=== PATIENT | female | born 1980 | race Caucasian/White ===

== ENCOUNTER 2018-07-17 23:02 | Inpatient (IN) ==
[2018-07-18] MEDS ORDERED: Acetaminophen 325 MG Tablet PO PRN (00:23)
[2018-07-18] MEDS ORDERED: Naloxone Inj 0.4 MG/ML Vial IV.PUSH PRN (00:23)
[2018-07-18] MEDS ORDERED: Benzocaine 20% Top Spray 60 ML Can TOPICAL PRN (00:23)
[2018-07-18] MEDS ORDERED: Zolpidem Tartrate 5 MG Tablet PO PRN (00:23)
[2018-07-18] MEDS ORDERED: Witch Hazel 50%/Glyderin 12.5% 40 Pad Jar RECTAL PRN (00:23)
[2018-07-18] MEDS ORDERED: Bisacodyl 10 MG Supp RECTAL PRN (00:23)
[2018-07-18] MEDS ORDERED: Oxytocin 30 Units/500ml Premix 30 UNITS/500 ML BAG IV.CONT PRN (00:23)
--- NOTE | 2018-07-18 00:40 | P.OP ---
- Preoperative Diagnosis (1) Fourth degree laceration of perineum during delivery, - Postoperative Diagnosis (1) Fourth degree laceration of perineum during delivery, Date of procedure: 07/17/18 Procedure: Repair Fourth degree perineal laceration Anesthesia: local (15 Lidocaine) Surgeon: Yovany Hinojosa MD Account Advisor: Leilani Concepcion Estimated blood loss (mL): 50 Operation and Findings: [facility] [place]. Patient had spontaneous vaginal delivery with Dr Stephany Sahni. DR Sahni reported 'rectal tear'. Vagina and perineum was cleansed with betadine. Examination was done that showed rectal extension. Prior sutures were removed. We determined 4th degree laceration. Rectal extension was repaired using 3.0 Vicryl mucosa. The retracted sphincter muscles were identified with Allis clamps, and re- approximated with 1 Prolene The rest of the repair was completed in standard fashion using 2.0 Vicryl/0 Vicryl. Rectal exam showed no palpable sutures ans was intact. Hemostasis ensured.
[2018-07-18] MEDS: Amoxicillin/Clavulanate 875/125 MG Tablet PO SCH ×2 (01:01→11:35)
--- NOTE | 2018-07-18 01:15 | P.HPOB ---
Patient is a 37 yo now P1, admitted here from [facility]. Patient was 39 weeks and 6 days, arrived there in spontaneous labor, and proceeded to deliver vaginally. Patient was delivered by Stephany Sahni. Patient states was previously uncompliacted. Stephany Sahni then repaired what she believed was a 2nd degree perineal laceration. However post repair, she noted that she could pass her finger from opening in vagina, through to a rectal tear. She was hemodynamicaly stable, and brought here for evaluation and repair. PMH denies PSH: denies NKDA. Non- smoker, no alcohol use, no h/o drug use. PHYSICAL EXAM. No palor, jaundice, or thyromegaly. No peripheral palpable lymphadenopathy. Afebrile, vital signs stable. Chest: CTS. RSR Abdomen: Fundus firm, 2Fb below umbilicus. Perineum with sutures. We were able to pass finger from vaginal opening to rectal tear. Sutures unravelled and 4th degree perineal laceration confirmed. A/Plan: Fourth degree perineal laceration. s/p Term spontaneous vaginal delivery at [facility]. proceed to repair ( repair separately dictated).
[2018-07-18 01:19] LABS: Hematocrit 35.5 % (35.0-46.0); Hemoglobin 12.1 gm/dL (11.6-15.3); Mean Corpuscular HGB Conc 34.1 % (32.0-36.0); Mean Corpuscular Hemoglobin 33.2 pg (27.0-34.0); Mean Corpuscular Volume 97.3 fL (80.0-100.0); Mean Platelet Volume 12.8 fL (7.0-11.0); Platelet Count 88 th/mm3 (150-450); Red Blood Count 3.65 mil/mm3 (4.00-5.30); Red Cell Distribution Width 14.3 % (11.6-17.2); White Blood Count 12.5 th/mm3 (4.0-11.0)
[2018-07-18 08:13] VITALS: BP 100/61; PULSE 83; RESP 14; TEMP 98.1
--- NOTE | 2018-07-18 08:57 | P.PNOB ---
Subjective Post day: 1 Interval history: Patient is a 37-year-old delivered at 39 weeks and 6 days. Patient is day 1 after NVD; patient delivered at birthing center but required hospital care for treatment of a fourth degree tear. Patient's pain is well- controlled. Patient reports minimal bleeding. Patient reports eating and drinking without any nausea or vomiting. Patient has passed gas but has not had a bowel movement. Patient denies chest pain and shortness of breath. Patient has been ambulating; she denies lower extremity pain. Patient reports desire for contraception, which she will discuss with her PCP at her first follow-up visit. Patient has decided to breast-feed. Objective Vital Signs/I&O: Vital Signs 07/17/18 23:10 07/17/18 23:11 07/17/18 23:15 Temperature 98.1 F Pulse Rate 100 H 99 H Respiratory Rate 18 Blood Pressure 106/62 07/17/18 23:20 07/17/18 23:25 07/17/18 23:30 Temperature Pulse Rate 108 H 106 H 93 H Respiratory Rate Blood Pressure 07/17/18 23:35 07/17/18 23:40 07/17/18 23:45 Temperature Pulse Rate 85 92 H 87 Respiratory Rate Blood Pressure 07/17/18 23:50 07/17/18 23:55 07/18/18 00:00 Temperature Pulse Rate 93 H 95 H 92 H Respiratory Rate Blood Pressure 07/18/18 00:05 07/18/18 00:10 07/18/18 00:15 Temperature Pulse Rate 85 86 90 Respiratory Rate Blood Pressure 07/18/18 00:25 07/18/18 00:30 07/18/18 02:15 Temperature 98.0 F Pulse Rate 77 94 H 86 Respiratory Rate 18 Blood Pressure 101/59 L 07/18/18 08:00 Temperature 98.1 F Pulse Rate 83 Respiratory Rate 14 Blood Pressure 100/61 Intake & Output 07/17/18 07/18/18 07/18/18 18:59 06:59 18:59 Weight 75.75 kg Result Diagrams: 07/17/18 23:18 Objective Remarks: GENERAL: Well-nourished, well-developed patient. CARDIOVASCULAR: Regular rate and rhythm without murmurs, gallops, or rubs. RESPIRATORY: Breath sounds equal bilaterally. No accessory muscle use. ABDOMEN/GI: Abdomen soft, non-tender. Fundus: Firm, non-tender at umbilicus. GENITOURINARY: Light to moderate bleeding. EXTREMITIES: No cyanosis or edema, non-tender, without signs of DVT. Medications and IVs: Active Medications Acetaminophen (Tylenol) 650 mg PO Q4H PRN PRN Reason: PAIN SCALE 1 TO 2 Al Hydroxide/Mg Hydroxide (Milk Of Magnesia Liq) 30 ml PO Q12H PRN PRN Reason: Mild Constipation Amoxicillin/Clavulanate Potassium (Augmentin 875/125 Mg) 1 tab PO Q12HR [facility] Last Admin: 07/18/18 01:01 Dose: 1 tab Benzocaine (Americaine 20% Top [place]) 1 spray TOPICAL Q4H PRN PRN Reason: For Perineum Discomfort Last Admin: 07/18/18 01:02 Dose: 1 spray Bisacodyl (Dulcolax Supp) 10 mg RECTAL DAILY PRN PRN Reason: SEVERE CONSITIPATION Diphtheria/Pertussis/Tetanus Vacc (Boostrix Vaccine Inj) 0.5 ml IM .ONCE ONE Stop: 07/18/18 16:01 Oxytocin (Pitocin 30 Units/Ns 500 Ml Premix) 30 units in 500 mls @ 100 mls/hr IV.CONT UNSCH PRN PRN Reason: Heavy bleeding Ibuprofen (Motrin) 800 mg PO Q8H PRN PRN Reason: For Cramping Lactulose (Lactulose Liq) 30 ml PO DAILY PRN PRN Reason: SEVERE CONSITIPATION Measles/Mumps/Rubella Vaccine Live (M-M-R Ii Vaccine Inj) 0.5 ml SQ .ONCE ONE Stop: 07/18/18 16:01 Naloxone HCl (Narcan Inj) 0.1 mg IV.PUSH Q2M PRN PRN Reason: for opiate reversal Ondansetron HCl (Zofran Odt) 4 mg PO Q6H PRN PRN Reason: NAUSEA OR VOMITING Oxycodone/Acetaminophen (Percocet 5/325 Mg) 1 tab PO Q4H PRN PRN Reason: PAIN SCALE 3 TO 5 Senna/Docusate Sodium (Darya-Colace) 1 tab PO BID [facility] Sennosides (Senokot) 17.2 mg PO Q12H PRN PRN Reason: Moderate Constipation Sodium Chloride (Ns Flush) 2 ml IV.FLUSH BID BERENICE Sodium Chloride (Ns Flush) 2 ml IV.FLUSH PRN PRN PRN Reason: FLUSH AFTER USING IV ACCESS Witch Rhea/Glycerin (Tucks Pads) 1 applicatio RECTAL QID PRN PRN Reason: HEMORRHOIDS Last Admin: 07/18/18 01:01 Dose: 1 applicatio Zolpidem Tartrate (Ambien) 5 mg PO HS PRN PRN Reason: SLEEP Assessment and Plan - Diagnosis (1) 39 weeks gestation of Code(s): Z3A.39 - 39 weeks gestation of Status: Acute (2) Fourth degree laceration of perineum during delivery, Code(s): O70.3 - Fourth degree perineal laceration during delivery Status: Acute - Plan Patient is a 37-year-old delivered at 39 weeks and 6 days. Patient is day 1 after NVD; patient delivered at birthing center but required hospital care for treatment of a fourth degree tear. Continue routine care. Motrin and Percocet when necessary for pain. Encourage OOB. Follow-up with OB provider in 1-2 weeks for monitoring of fourth degree tear. Discussed soft diet to avoid hard stool. Patient discharged on stool softener and Augmentin x5 days. Pelvic rest for 6 weeks will need follow-up appointment at that time. Contraception: Patient to discuss with OB provider. Anticipate discharge today. [facility] hospitalist
[2018-07-18] MEDS ORDERED: Senna/Docusate Sodium 8.6/50 MG Tablet PO SCH (09:00)
[2018-07-18] MEDS ORDERED: Diphtheria/Tetanus/Pertussis Vaccine Inj 0.5 ML Syringe IM ONE (16:00)
[2018-07-18] MEDS ORDERED: Measles/Mumps/Rubella Vaccine Inj 0.5 ML Vial SQ ONE (16:00)
== END 2018-07-18 11:46 | disposition home or self-care (01) ==
LOC: H2E 23:02 → H1EA 07-18 01:59
PROVIDERS: ADMIT Obstetrics & Gynecology; ATTEND Obstetrics & Gynecology